=== PATIENT | female | born 1955 | race Caucasian/White ===

== ENCOUNTER → 2018-11-30 | Outpatient (CLI) | payer MEDICARE, BC ==
[~2018-11-30] MED LIST: ACET325 PO; ALPR.5 PO; ESTEST.62T; PARO10 PO; Prilosec Otc20 MG; RXPHEN200 PO; RXSULTRIDS PO; SULTRIDS PO
== END | disposition home or self-care (01) ==
LOC: LAB SHORT 16:32 → LAB EV 16:32
DX: R82.81 Pyuria (principal)
CPT/HCPCS: 87086

== ENCOUNTER → 2018-12-06 | Outpatient (CLI) | payer MEDICARE, BC | END | disposition home or self-care (01) | LOC: LAB EV 21:00 | DX: R10.13 Epigastric pain (principal) | CPT/HCPCS: 87338 ==

== ENCOUNTER 2019-02-07 08:35 | Day surgery (SDC) | payer MEDICARE, BC ==
[~2019-02-07] VITALS: Ht 165.1 cm; Wt 74.2 kg
[~2019-02-07 08:35] MED LIST changes: +Daily Multiple1 EACH PO; +Glucosamine H1500 MG PO; +OMEPRAZOLE20 MG PO
[2019-02-07] MEDS ORDERED: XANAX0.5 MG (09:15)
== END 2019-02-07 10:39 | disposition home or self-care (01) ==
LOC: ORSCSDS 08:35
PROVIDERS: Surgery
PROC: 0DB98ZX Excision of Duodenum, Via Natural or Artificial Opening Endoscopic, Diagnostic (ICD-10-PCS; principal; 2019-02-07 10:00)
PROC: 0DB48ZX Excision of Esophagogastric Junction, Via Natural or Artificial Opening Endoscopic, Diagnostic (ICD-10-PCS; principal; 2019-02-07 10:00)
PROC: 0DB68ZX Excision of Stomach, Via Natural or Artificial Opening Endoscopic, Diagnostic (ICD-10-PCS; principal; 2019-02-07 10:00)
DX: K44.9 Diaphragmatic hernia without obstruction or gangrene (principal); K21.9 Gastro-esophageal reflux disease without esophagitis; F41.9 Anxiety disorder, unspecified; E78.5 Hyperlipidemia, unspecified; R10.13 Epigastric pain; K29.70 Gastritis, unspecified, without bleeding; Z79.899 Other long term (current) drug therapy
CPT/HCPCS: 88305; 88312; 88342; J2704; J7120

== ENCOUNTER → 2021-06-29 | Outpatient (CLI) | payer MEDICARE, BC ==
[~2021-06-29] MED LIST changes: +XANAX0.5 MG
== END | disposition home or self-care (01) ==
LOC: LAB 17:30 → LAB SHORT 17:30
DX: R31.9 Hematuria, unspecified (principal)
CPT/HCPCS: 87086

== ENCOUNTER → 2022-07-23 | Outpatient (CLI) | payer MEDICARE, BC | END | disposition home or self-care (01) | LOC: LAB 17:45 → LAB SHORT 17:45 | DX: N39.0 Urinary tract infection, site not specified (principal) | CPT/HCPCS: 87077; 87086; 87186 ==

== ENCOUNTER 2022-11-17 11:30 | Day surgery (SDC) | payer MEDICARE, BC ==
[~2022-11-17] VITALS: Ht 165.1 cm; Wt 71.8 kg
[2022-11-17] MEDS ORDERED: CALCIUM CIT 311 EAC7 PO (12:00)
[2022-11-17 13:29] VITALS: BP 134/65
--- NOTE | 2022-11-17 13:36 | NUR ---
11/17/22 1336 Lamar Garcia IV DC'D WITH CATH TIP INTACT. SITE WNL, NO SWELLING OR BLEEDING NOTED.
== END 2022-11-17 13:38 | disposition home or self-care (01) ==
LOC: ORSCSDS 11:30
PROVIDERS: Surgery
PROC: 0DBN8ZX Excision of Sigmoid Colon, Via Natural or Artificial Opening Endoscopic, Diagnostic (ICD-10-PCS; principal; 2022-11-17 13:00)
DX: Z12.11 Encounter for screening for malignant neoplasm of colon (principal); Z85.040 Personal history of malignant carcinoid tumor of rectum; Z86.010 Personal history of colon polyps; D12.5 Benign neoplasm of sigmoid colon; K57.30 Diverticulosis of large intestine without perforation or abscess without bleeding; F41.9 Anxiety disorder, unspecified; E78.5 Hyperlipidemia, unspecified; Z79.899 Other long term (current) drug therapy
CPT/HCPCS: 88305; J2704